=== PATIENT | female | born 1960 | race Caucasian/White ===

== ENCOUNTER 2023-07-19 21:06 | Emergency (ER) | payer OTHER ==
[~2023-07-19] VITALS: Ht 157.5 cm; Wt 70.9 kg
[2023-07-19 21:33] VITALS: BP 180/74; O2SAT 95
[2023-07-19] MEDS ORDERED: CEFUROXIME AXETIL 250 MG TABLET PO STA (21:33)
[2023-07-19 21:55] LABS: SARS-CoV-2, RNA, NAAT NEGATIVE SARS CoV-2 (NEGATIVE)
[2023-07-19 21:59] LABS: INFLUENZA TYPE A Negative For Type A (NEGATIVE); INFLUENZA TYPE B Negative For Type B (NEGATIVE)
[2023-07-19] MEDS ORDERED: PREDNISONE 20 MG TABLET PO ONE (22:00)
[2023-07-19] MEDS ORDERED: IPRATROPIUM/ALBUTEROL SULFATE 3 ML SOLUTION IH ONE (22:00)
[2023-07-19] MEDS ORDERED: PRED20TA3 PO (22:23)
[2023-07-19] MEDS ORDERED: ALBU90AE2 IH (22:23)
[2023-07-19] MEDS ORDERED: CEFU500T67 PO (22:23)
[2023-07-19 22:52] LABS: BASOPHILS # (AUTO) 0.05 K/uL (0.00-0.20); BASOPHILS % (AUTO) 0.6 % (0.0-5.0); EOSINOPHILS # (AUTO) 0.36 K/uL (0.00-0.70); EOSINOPHILS % (AUTO) 4.2 % (0.0-8.0); HEMATOCRIT 50.1 % (36-48); IMMATURE GRANULOCYTE ABSOLUTE 0.02 K/uL (0-1); LYMPHOCYTES # (AUTO) 3.7 K/uL (1.0-4.8); LYMPHOCYTES % (AUTO) 42.2 % (21.0-51.0); MEAN CORPUSCULAR HEMOGLOBIN 31.2 pg (27.0-33.0); MEAN CORPUSCULAR HGB CONC 32.7 g/dL (32.0-36.0); MEAN CORPUSCULAR VOLUME 95.4 fL (79-99); MONOCYTES # (AUTO) 0.7 K/uL (0.1-1.0); MONOCYTES % (AUTO) 8.6 % (3.0-13.0); NEUTROPHILS # (AUTO) 3.8 K/uL (1.8-7.7); NEUTROPHILS % (AUTO) 44.2 % (40.0-77.0); PLATELET COUNT (AUTO) 307 K/uL (130-400); RED BLOOD CELL COUNT(AUTO) 5.25 MIL/uL (4.00-5.50); RED CELL DISTRIBUTION WIDTH 13.9 % (11.0-15.5); WHITE BLOOD COUNT (AUTO) 8.6 K/uL (4.8-10.8)
[2023-07-19 23:03] LABS: CREATININE 1.4 mg/dL (0.5-1.5); POTASSIUM 4.6 mmol/L (3.5-5.1)
[2023-07-19 23:10] LABS: ALBUMIN 3.1 g/dL (3.5-5.0); BILIRUBIN,TOTAL 0.2 mg/dL (0.2-1.0); TOTAL PROTEIN, SERUM 7.9 g/dL (6.0-8.3)
[2023-07-19 23:26] VITALS: PULSE 96; RESP 20
[2023-07-20 00:04] LABS: B-TYPE NATRIURETIC PEPTIDE 93 pg/mL (0-100)
== END 2023-07-19 23:56 | disposition home or self-care (01) ==
LOC: EDH 21:06
DX: J20.9 Acute bronchitis, unspecified (principal); J45.909 Unspecified asthma, uncomplicated; I10 Essential (primary) hypertension; Z20.822 Contact with and (suspected) exposure to COVID-19; Z90.49 Acquired absence of other specified parts of digestive tract; Z88.8 Allergy status to other drugs, medicaments and biological substances
CPT/HCPCS: 99284; 71045; 87635; 82550; 84484; 80053; 83880; 85025; 87804 ×2; 36415; 94640; C9803

== ENCOUNTER 2025-04-29 12:29 | Emergency (ER) | payer SELFPAY ==
[~2025-04-29] VITALS: Ht 157.5 cm; Wt 72.6 kg
[~2025-04-29 12:29] MED LIST: ALBU90AE3 IH; CEFU500T67 PO; PRED20TA3 PO
[2025-04-29 13:01] LABS: IMMATURE GRANULOCYTE ABSOLUTE 0.03 K/uL (0-1); NUCLEATED RED BLOOD CELLS 0.0 % (0.0-0.19); PLATELET COUNT (AUTO) 363 K/uL (130-400); RED BLOOD CELL COUNT(AUTO) 4.74 MIL/uL (4.00-5.50); RED CELL DISTRIBUTION WIDTH 14.6 % (11.0-15.5); WHITE BLOOD COUNT (AUTO) 8.9 K/uL (4.8-10.8)
[2025-04-29 13:10] LABS: CREATININE 1.2 mg/dL (0.5-1.0); GLOMERULAR FILTR. RATE CALC 51.0 mL/min (>90); GLUCOSE,RANDOM 130.0 mg/dL (70-105); SODIUM SERUM 137.0 mmol/L (136-145); UREA NITROGEN, BLOOD 11.0 mg/dL (7-18)
[2025-04-29 13:11] LABS: INR 0.96 (0.85-1.15)
--- NOTE | 2025-04-29 13:11 | ERN ---
General Chief Complaint: Chest Pain Stated Complaint: CP Time Seen by MD: 12:32 Source: patient History of Present Illness Initial Comments PATIENT IS A 64-YEAR-OLD FEMALE COMING IN COMPLAINING OF CHEST PRESSURE CHEST DISCOMFORT. PER PATIENT SHE HAS HAD THIS SYMPTOMS FOR A COUPLE OF WEEKS ON AND OFF. SHE STATED THAT TODAY IT IS 6045 IN THE MORNING SHE WAS HAVING THIS DISCOMFORT BUT A MOMENT OF EVALUATION IN TRIAGE HER SYMPTOMS HAVE SUBSIDED. PATIENT DOES STATE THAT SHE SMOKES HALF A PACK OF CIGARETTES FOR 20 YEARS. Allergies: Coded Allergies: shellfish derived (Unverified Allergy, Unknown, 07/19/23) Home Meds Active Scripts Albuterol Sulfate (Proair Digihaler) 90 Mcg Aer.pw.bas, 2 PUFF IH QID, #1 UNIT Prov:GABY NOGUERA MD 07/19/23 Prednisone (Prednisone) 20 Mg Tablet, 1 TAB PO AD for 6 Days, #14 TAB 0 Refills TAKE 3 TAB BY MOUTH daily X3 DAYS, THEN TAKE 2 TAB BY MOUTH daily X2 DAYS, THEN TAKE 1 TAB BY MOUTH ONCE A DAY X1 DAY. Prov:GABY NOGUERA MD 07/19/23 Cefuroxime Axetil (Cefuroxime) 500 Mg Tablet, 500 MG PO BID, #20 TAB Prov:GABY NOGUERA MD 07/19/23 Past Medical History Past Medical History: Cancer, Hypertension Past Surgical History: Cholecystectomy Surgical History Other: RT NEPHRECTOMY ROS Dictation CONSTITUTIONAL: NO CHILLS, NO FEVER, NO WEAKNESS, NO DIAPHORESIS, NO MALAISE. HEAD/FACE: NO SIGNS OF TRAUMA. EENT: NO EYE PAIN, NO BLURRED VISION, NO TEARING, NO DOUBLE VISION, NO EAR PAIN, NO EAR DISCHARGE, NO NOSE PAIN, NO NASAL CONGESTION, NO THROAT PAIN, NO THROAT SWELLING, NO MOUTH PAIN. RESPIRATORY: NO COUGH, NO ORTHOPNEA, NO SOB, NO STRIDOR, NO WHEEZING. CARDIOVASCULAR: NO CHEST PAIN, NO EDEMA, NO PALPITATIONS, NO SYNCOPE. GASTROINTESTINAL/ABDOMINAL: NO ABDOMINAL PAIN, NO CONSTIPATION, NO DIARRHEA, NO NAUSEA, NO VOMITING. GENITOURINARY: NO ABNORMAL DISCHARGE, NO DYSURIA, NO FREQUENT URINATION, NO HEMATURIA. NO COMPLAINTS OF PAIN IN THE GENITALS. MUSCULOSKELETAL: NO BACK PAIN, NO GOUT, NO JOINT PAIN, NO JOINT SWELLING, NO MUSCLE PAIN, NO MUSCLE STIFFNESS, NO NECK PAIN. INTEGUMENTARY: NO CHANGE IN COLOR, NO CHANGE IN HAIR/NAILS, NO DRYNESS, NO LESION, NO LUMPS, NO RASH. NEUROLOGICAL/PSYCH: NO ANXIETY, NOT DEPRESSED, NO EMOTIONAL PROBLEM, NO HEADAC HE, NO NUMBNESS, NO PRE-EXISTING DEFICIT, NO HISTORY OF SEIZURES, NO TREMORS, NO WEAKNESS. HEMATOLOGIC/LYMPHATIC: NOT ANEMIC, NO HISTORY OF BLOOD CLOTS, NO APPARENT BLEEDING, NO BRUISING, GLANDS NOT SWOLLEN. ALL SYSTEMS NEGATIVE, EXCEPT NOTED. Physical Exam Physical Exam Dictation VITAL SIGNS: REVIEWED. GENERAL APPEARANCE: ALERT, ORIENTED X3, NO ACUTE DISTRESS, OBESE. HEAD AND FACE: NON-TRAUMATIC. EYES: PERRL, PINK CONJUNCTIVAS, EYELID NO TRAUMA, ANTERIOR CHAMBER CLEAR. EARS: PINNAS INTACT AND NO SIGNS OF TRAUMA OR ERYTHEMA. EAR CANALS CLEAR AND NO DISCHARGE. TMS NO ERYTHEMA. NOSE: NO DISCHARGE, NO BLEEDING. OROPHARYNX: MOUTH NORMAL, TEETH NO CARIES, TONGUE PINK. PHARYNX CLEAR, NO ERYTHEMA. TONSILS NO EXUDATES, NO ABSCESSES NOTED. MUCOUS MEMBRANE MOIST. NECK: SUPPLE, NON-TENDER, NO THYROMEGALY, NO MASSES, NO JVD, NO BRUITS. BREAST: DEFERRED. CHEST: NO TENDERNESS, NO CREPITUS, NO PARADOXICAL MOVEMENT, NO RETRACTIONS. LUNGS: CLEAR, WELL-VENTILATED, SYMMETRIC, NO RALES, NO WHEEZING, NO RHONCHI, NO STRIDOR, GOOD BREATH SOUNDS BILATERALLY. HEART: REGULAR RATE, REGULAR RHYTHM, NO MURMUR, NO GALLOPS. VASCULAR: NO PERIPHERAL EDEMA. ABDOMEN: SOFT, POSITIVE BOWEL SOUNDS, NONDISTENDED, NO GUARDING, NONTENDER, NO REBOUND, NO MASSES NO HEPATOMEGALY, NO SPLENOMEGALY, NO MILES'S SIGN, NO HERNIAS. RECTAL: DEFERRED. GENITAL: DEFERRED. NEUROLOGICAL: NORMAL SPEECH, GROSS MOTOR FUNCTION INTACT, GROSS SENSORY FUNCTION INTACT. MUSCULOSKELETAL: NECK NONTENDER, FULL RANGE OF MOTION, BACK NONTENDER, FULL RANGE OF MOTION. EXTREMITIES: NONTENDER, FULL RANGE OF MOTION. SKIN: COLOR PINK, DRY, NO TURGOR, NO RASH, NO LACERATIONS, NO ABRASIONS, NO CONTUSIONS. LYMPHATICS: DEFERRED. Results Laboratory and Microbiology Lab and Micro Result Laboratory Tests Test 04/29/25 12:56 White Blood Count 8.9 K/uL (4.8-10.8) Red Blood Count 4.74 MIL/uL (4.00-5.50) Hemoglobin 15.0 g/dL (12.0-16.0) Hematocrit 44.2 % (36-48) Mean Corpuscular Volume 93.2 fL (79-99) Mean Corpuscular Hemoglobin 31.6 pg (27.0-33.0) Mean Corpuscular Hemoglobin Concent 33.9 g/dL (32.0-36.0) Red Cell Distribution Width 14.6 % (11.0-15.5) Platelet Count 363 K/uL (130-400) Mean Platelet Volume 9.2 fL (7.5-10.5) Immature Granulocyte % (Auto) 0.3 % (0-1) Neutrophils (%) (Auto) 56.3 % (40.0-77.0) Lymphocytes (%) (Auto) 28.9 % (21.0-51.0) Monocytes (%) (Auto) 9.0 % (3.0-13.0) Eosinophils (%) (Auto) 4.7 % (0.0-8.0) Basophils (%) (Auto) 0.8 % (0.0-5.0) Neutrophils # (Auto) 5.0 K/uL (1.8-7.7) Lymphocytes # (Auto) 2.6 K/uL (1.0-4.8) Monocytes # (Auto) 0.8 K/uL (0.1-1.0) Eosinophils # (Auto) 0.42 K/uL (0.00-0.70) Basophils # (Auto) 0.07 K/uL (0.00-0.20) Absolute Immature Granulocyte (auto 0.03 K/uL (0-1) Nucleated Red Blood Cells 0.0 % (0.0-0.19) Prothrombin Time 10.2 SEC (9.6-11.6) Prothromb Time International Ratio 0.96 (0.85-1.15) Activated Partial Thromboplast Time 31.2 SEC (26.3-35.5) Sodium Level 137 mmol/L (136-145) Potassium Level 4.0 mmol/L (3.5-5.1) Chloride Level 104 mmol/L (101-111) Carbon Dioxide Level 29 mmol/L (21-32) Blood Urea Nitrogen 11 mg/dL (7-18) Creatinine 1.2 mg/dL (0.5-1.0) H Glomerular Filtration Rate Calc 51 mL/min (>90) Random Glucose 130 mg/dL (70-105) H Total Calcium 8.9 mg/dL (8.5-10.1) Magnesium Level 1.90 mg/dL (1.80-2.40) Troponin I High Sensitivity 20 ng/L (4-50) B-Type Natriuretic Peptide 156 pg/mL (0-100) H Labs Reviewed?: Yes EKG/XRAY/US/CT/MRI EKG Comment 04/29/2025 TIME 12:22 P.M. VENTRICULAR RATE 80 SINUS RHYTHM LEFT BUNDLE BRANCH BLOCK NO ST WAVE ELEVATION OR DEPRESSION X-RAY Comment [place] [id number] [id number] IMAGING REPORT Signed PATIENT: MINA BRADSHAW MR#: [id number] : 1960 SEX: F AGE: 64 LOCATION: [facility] ORDER 1234 STATUS: REG ER REPORT#: [id number] SERVICE 1232 REASON: CP ORDERING PHYSICIAN: AME COOPER MD PROCEDURE: CXR1VW - CHEST 1VW EXAM: CR Chest, 1 View. CLINICAL HISTORY: CP COMPARISON: None provided. FINDINGS: LUNGS: The lungs show no infiltrate or other acute finding. PLEURAL SPACES: No evidence of pleural effusion or pneumothorax. MEDIASTINUM: Cardiac size and mediastinal contours within normal limits. BONES: No acute osseous abnormality. IMPRESSION: No acute cardiopulmonary pathology is evident. /[place] DICTATED BY: HO DOWNS Jr., MD DATE: 04/29/251431 ELECTRONICALLY SIGNED BY: HO DOWNS Jr., MD DATE: 04/29/251431 [facility] MDM: DIFFERENTIAL DIAGNOSIS: LEFT BUNDLE-BRANCH BLOCK, CHEST PAIN, HISTORY OF TOBACCO ABUSE, RATIONALE: TESTS CONSIDERED AND ORDERED SECONDARY TO SHARED DECISION MAKING INCLUDE: LABS, ECG AND RADIOLOGY PREVIOUS OUTSIDE RECORDS REVIEWED: OLD ER VISITS. RISK OF COMPLICATION AND/OR MORBIDITY OR MORTALITY OF PATIENT MANAGEMENT: NONE MEDICATIONS-PER MEDICATION RECONCILIATION NEED FOR HOSPITALIZATION: PATIENT DOES MEET CRITERIA FOR HOSPITALIZATION. NEED FOR EMERGENCY MAJOR/MINOR SURGERY: NO THERE ARE NO SOCIAL CONCERNS WITH THIS PATIENT. PRESCRIPTION DRUG MANAGEMENT PRESCRIPTIONS WILL INCLUDE SYMPTOMATIC CARE PATIENT'S PRIOR EXTERNAL MEDICAL RECORDS FROM OTHER ER VISITS WERE REVIEWED BY ME INDICATED. PRIOR TESTING AND RESULTS FROM PREVIOUS VISITS WERE REVIEWED. PRIOR TESTS WERE TAKEN INTO ACCOUNT WITH MEDICAL DECISION MAKING AND RESOURCE UTILIZATION, INDEPENDENT HISTORIAN/HISTORIANS WERE USED TO OBTAIN COMPLETE MEDICAL HISTORY. I INDEPENDENTLY INTERPRETED THE TEST THAT WERE PERFORMED, RESULTS WERE REVIEWED BY ME AND CONSIDERED FINDINGS ON RADIOLOGY IF ORDERED. MEDICAL MANAGEMENT AND EXAMINATION INTERPRETATION DISCUSSIONS WERE HAD BY ME WITH OTHER QUALIFIED HEALTHCARE PROFESSIONALS INDICATED FOR THE PATIENT'S CARE. PATIENT PRESENTS WITH CHEST PAIN ON AND OFF FOR SEVERAL WEEKS. CONCERNING FINDINGS AND EKG, A NEW LEFT BUNDLE BRANCH BLOCK WITH CHEST PAIN I DID ADVISE HER CARDIAC EVALUATION WITH THE NECESSARY AND KEEP HER WAS NOTIFIED BY NURSING STAFF THE PATIENT DID NOT WANT TO STAY LEFT AGAINST MEDICAL ADVICE. ED Course Orders Procedure Category Date Status Time Cbc With Differential LAB 04/29/25 Complete 12:32 Prothrombin Time With LAB 04/29/25 Complete INR 12:32 Chest 1vw RAD 04/29/25 Resulted 12:32 12 Lead Ekg Tracing- EKG 04/29/25 Complete Technical 12:32 Magnesium LAB 04/29/25 Complete 12:32 Troponin I High LAB 04/29/25 Complete Sensitivity 12:32 Partial LAB 04/29/25 Complete Thromboplastin Time 12:32 Basic Metabolic Panel LAB 04/29/25 Complete 12:32 B-Type Natriuretic LAB 04/29/25 Complete Peptide 12:32 Vital Signs Date Time Temp Pulse Resp B/P (MAP) Pulse Ox O2 Delivery O2 Flow Rate FiO2 04/29/25 13:21 98.6 73 20 165/73 96 Room Air* 0 04/29/25 12:58 75 20 166/60 96 Room Air* 0 04/29/25 12:32 97.3 76 18 194/77 98 Room Air 0 DX & DISP Disposition: AMA Departure Impression: Primary Impression: New onset left bundle branch block (LBBB) Additional Impression: Chest pain Condition: Against Medical Advice Additional Instructions: PATIENT LEFT AGAINST MEDICAL ADVICE. Referrals: SELF,REFERRAL (PCP) AME COOPER MD Apr 29, 2025 13:11
--- NOTE | 2025-04-29 13:18 | EKG ---
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
[2025-04-29 13:21] VITALS: BP 165/73; PULSE 73; RESP 20; TEMP 98.6; O2SAT 96
--- NOTE | 2025-04-29 13:32 | HMCIMG ---
EXAM: CR Chest, 1 View. CLINICAL HISTORY: CP COMPARISON: None provided. FINDINGS: LUNGS: The lungs show no infiltrate or other acute finding. PLEURAL SPACES: No evidence of pleural effusion or pneumothorax. MEDIASTINUM: Cardiac size and mediastinal contours within normal limits. BONES: No acute osseous abnormality. IMPRESSION: No acute cardiopulmonary pathology is evident. /[place]
--- NOTE | 2025-04-29 13:42 | NUR ---
DR. COOPER SPOKE WITH PATIENT ABOUT BEING ADMITTED TO THE HOSPITAL FOR FURTHER CARDIAC WORKUP, PATIENT VOICED THAT SHE IS NOT READY FOR ADMISSION AND NEEDS TO RETURN HOME TO SITUATE HER HOME AND ANIMALS. INFORMED PATIENT THAT IF SHE LEAVES IT IS CONSIDERED LEAVING AGAINST MEDICAL ADVICE AND THE RISKS INVOLVED ARE WORSENING OF SYMPTOMS OR . PATIENT VERBALIZED UNDERSTANDING AND INSTRUCTED TO RETURN TO THE ED IF SYMPTOMS WORSEN. PATIENT SIGNED AMA FORM AND AMBULATED TO THE DISCHARGE DOOR TO THE WAITING ROOM. ED MD AWARE AND SIGNED AMA FORM./[place]
== END 2025-04-29 13:53 | disposition left against medical advice (07) ==
LOC: EDH 12:29
DX: I44.7 Left bundle-branch block, unspecified (principal); I10 Essential (primary) hypertension; Z87.891 Personal history of nicotine dependence; Z90.49 Acquired absence of other specified parts of digestive tract; Z90.5 Acquired absence of kidney
CPT/HCPCS: 36415; 71045; 80048; 83735; 83880; 84484; 85025; 85610; 85730; 93005; 99285

== ENCOUNTER 2025-04-29 15:55 | Emergency (ER) | payer SELFPAY ==
[~2025-04-29] VITALS: Ht 157.5 cm; Wt 72.6 kg
[2025-04-29 15:57] VITALS: TEMP 97.2
--- NOTE | 2025-04-29 16:20 | NUR ---
PT IS CONFRONTATIONAL, UNWILLING TO FULLY COOPERATE. WHEN ASKED BOUT PTS MEDICAL HISTORY AND REASON FOR HOSPITAL VISIT PT STATED "I DONT SEE HOW THAT MATTERS, I WAS HERE EARLIER. I DON'T GIVE PEOPLE MY MEDICAL HISTORY BEACSUE IT DOES PERTAIN TO WHY IM HERE". PT WAS ADVISED THAT WILLFULY WITHOLDING HER HISTORY IS ONLY A DISSERVICE TO HERSELF SHE IS RECEIVING INCOMPLETE MEDICAL CARE. PT DOES NOT SEEM RECEPTIVE TO EDUCATION AT THIS TIME.
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
--- NOTE | 2025-04-29 16:25 | NUR ---
PT WAS ADVISED THAT TROPONIN WOULD BE REPEATED AT THIS TIME TO DEFINE A TREND. PT WAS ADVISED THAT TROPONIN WOULD LIKE BE REPEATED A FEW TIMES DURING ADMISSION TO ASCERTAIN CARDIAC HEALTH. PT WAS VERY RESISTANT TO LAB COLLECTION. AFTER MULTIPLE TIMES OF RE-ITERATING NEED FOR BLOOD WORK, PT CONSENTED TO LAB DRAW. PT THEN STATED THAT EVERYONE HURTS HER GETTING LAB WORK. ON COLLECTION PT WAS MOVING TO WITHDRAW FROM IV AND KEEP MMOVING HER ARM. WHEN ASKED TO HOLD STILL PT REPLIED "NO I WONT". LAB WAS SUCCESSFULLY OBTIANED, REGARDLESS OF MOTION.
[2025-04-29 16:30] VITALS: BP 186/71; PULSE 75; RESP 18; O2SAT 96
--- NOTE | 2025-04-29 17:05 | NUR ---
PT IS WALKING UP AND DOWN THE HALLS, STATES SHE WANTS TO WAIT OUTSIDE. PT WAS ADVISED THAT MUST STAY IN THE ED. PT WAS ADVISED THAT SHE CANNOT LEAVE THE ED WITH IV BUT IS MORE THAN WELCOME TO SIT IN A CHAIR IN THE HALLWAY, PT REPORTS THAT SHE CANNOT BE INSIDE THE ROOM ANYMORE BECAUSE IT MAKES HER ANXIOUS. PT REMIANED STANDING IN THE HALLWAY. PT THEN ASKED HOW LONG IT WOULD TAKE TO GET A ROOM UPSTAIRS . PT WAS ADVISED SHE STILL DOES NOT HAVE ADMISSION ORDERS AND IT MIGHT TAKE A WHILE TO GET HER UPSTAIRS.
--- NOTE | 2025-04-29 17:15 | NUR ---
PT STATES SHE WANTS THE IV REMOVED, STATES SHE IS LEAVING. WHEN ADVISED SHE NEEDED TO SIGN OUT AMA, PT STATES "THAT'S FINE". PTS IV WAS REMOVED AND SITE WAS BANDAGED WITH COBAIN. PT GIVEN AMA FORM TO SIGN. PROVIDER MIRTA NEGRETE NP WAS INFOMRED. PROVIDER SPOKE TO PT, PT CONTINUES TO REPORT THAT SHE IS LEAVING. PT LEFT THE ED DEPARTMENT ON HER OWN VOLITION.
--- NOTE | 2025-04-30 06:28 | EKG ---
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
== END 2025-04-29 17:20 | disposition home or self-care (01) ==
LOC: EDH 15:55
DX: I44.7 Left bundle-branch block, unspecified (principal); R07.89 Other chest pain; N18.30 Chronic kidney disease, stage 3 unspecified; F17.200 Nicotine dependence, unspecified, uncomplicated; Z90.49 Acquired absence of other specified parts of digestive tract; Z90.5 Acquired absence of kidney
CPT/HCPCS: 84484; 93005; 99284

== ENCOUNTER 2025-06-18 23:01 | Emergency (ER) | payer SELFPAY ==
[~2025-06-18] VITALS: Ht 157.5 cm; Wt 72.6 kg
--- NOTE | 2025-06-18 23:22 | ERN ---
ED Note History of Present Illness Stated Complaint: LEG PAIN Chief Complaint: Lower Extremity Pain/Injury Time Seen by MD: 23:14 Dictation: PATIENT IS A 64-YEAR-OLD FEMALE COMING IN TODAY WITH COMPLAINTS OF RIGHT CALF AND THIGH PAIN SWELLING SHE HAS HAD FOR TWO MONTHS. SHE SAID SHE STARTED OUT WITH A WALK TWO MONTHS AGO WHERE SHE FELT THE PAIN IN HER CALF AND HAS BEEN GRADUALLY GETTING WORSE. SHE DENIES FEVER CHILLS NAUSEA VOMITING. DISTAL NEUROVASCULAR CMS INTACT. SHE STATES SHE WENT TO A LOCAL URGENT CARE TODAY AND THEY PERFORMED X-RAYS AND PRESCRIBED TYLENOL WITH CODEINE BUT IT WAS TOO LATE TO PICK IT UP. SHE STATES HE SHE IS HERE BECAUSE OF THE PAIN IN HIS CONCERNED BECAUSE SHE ONLY HAS ONE KIDNEY THAT SHE LOST TO RE[facility] CELL [facility]CIN[facility] MORE THAN 20 YEARS AGO. Allergies: Coded Allergies: shellfish derived (Unverified Allergy, Unknown, 07/19/23) Home Meds Active Scripts Albuterol Sulfate (Proair Digihaler) 90 Mcg Aer.pw.bas, 2 PUFF IH QID, #1 UNIT Prov:GABY NOGUERA MD 07/19/23 Prednisone (Prednisone) 20 Mg Tablet, 1 TAB PO AD for 6 Days, #14 TAB 0 Refills TAKE 3 TAB BY MOUTH daily X3 DAYS, THEN TAKE 2 TAB BY MOUTH daily X2 DAYS, THEN TAKE 1 TAB BY MOUTH ONCE A DAY X1 DAY. Prov:GABY NOGUERA MD 07/19/23 Cefuroxime Axetil (Cefuroxime) 500 Mg Tablet, 500 MG PO BID, #20 TAB Prov:GABY NOGUERA MD 07/19/23 Past Medical History Past Medical History: Cancer, Hypertension, Other Additional Past Medical Hx: NON COMPLIANT Surgical History: Appendectomy, Cholecystectomy Surgical History Other: RT NEPHRECTOMY Social History: Smokers History: Not Applicable RN Note Reviewed/Agreed w/PFSH: Yes Review of System Dictation CONSTITUTIONAL: NEGATIVE EXCEPT FOR HPI HEAD/FACE: NEGATIVE EXCEPT FOR HPI EENT: NEGATIVE EXCEPT FOR HPI RESPIRATORY: NEGATIVE EXCEPT FOR HPI GASTROINTESTINAL/ABDOMINAL: NEGATIVE EXCEPT FOR HPI GENITOURINARY: NEGATIVE EXCEPT FOR HPI MUSCULOSKELETAL: NEGATIVE EXCEPT FOR HPI RIGHT LEG THIGH CALF PAIN SWELLING INTEGUMENTARY: NEGATIVE EXCEPT FOR HPI NEUROLOGICAL/PSYCH: NEGATIVE EXCEPT FOR HPI HEMATOLOGIC/LYMPHATIC: NEGATIVE EXCEPT FOR HPI ALL SYSTEMS NEGATIVE, EXCEPT NOTED ABOVE. 13 POINT REVIEW OF SYSTEMS ASSESSED AND ALL NEGATIVE EXCEPT FOR ABOVE. Initial Vital Sign VS Vital Signs Date Time Temp Pulse Resp B/P (MAP) Pulse Ox O2 Delivery O2 Flow Rate FiO2 06/18/25 23:12 97.9 88 20 198/90 99 Room Air Physical Exam Dictation VITAL SIGNS REVIEWED GENERAL APPEARANCE: ALERT, ORIENTED X 3, N MILD ACUTE DISTRESS, WELL DEVELOPED, NOURISHED. HEAD AND FACE: NON-TRAUMATIC. EYES: PERRL, PINK CONJUNCTIVAS, EYELID NO TRAUMA, ANTERIOR CHAMBER WITH ARCUS SENILIS. EARS: PINNAS INTACT AND NO SIGNS OF TRAUMA OR ERYTHEMA EAR CANALS CLEAR AND NO DISCHARGE TM NO ERYTHEMA NOSE: NO DISCHARGE, NO BLEEDING. OROPHARYNX: MOUTH NORMAL, TONGUE PINK, PHARYNX CLEAR,NO ERYTHEMA, TONSILS NO EXUDATES, NO ABSCESSES NOTED, MUCOUS MEMBRANE MOIST NECK: SUPPLE, NON-TENDER, NO THYROMEGALY, NO MASSES, NO JVD, NO BRUITS BREAST:DEFERRED CHEST:NO TENDERNESS, NO CREPITUS, NO PARADOXICAL MOVEMENT, NO RETRACTIONS LUNGS:CLEAR, WELL-VENTILATED, SYMMETRIC, NO RALES, NO WHEEZING, NO RHONCHI, NO STRIDOR, GOOD BREATH SOUNDS BILATERALLY HEART: REGULAR RATE, REGULAR RHYTHM, NO MURMUR, NO GALLOPS VASCULAR: NO PERIPHERAL EDEMA, ABDOMEN: SOFT, POSITIVE BOWEL SOUNDS, NONDISTENDED, NO GUARDING, NONTENDER, NO REBOUND, NO MASSES NO HEPATOMEGALY, NO SPLENOMEGALY, NO MILES'S SIGN, NO HERNIAS. RECTAL: DEFERRED GENITAL: DEFERRED NEUROLOGICAL: NORMAL SPEECH, MOTOR FUNCTION INTACT, SENSORY FUNCTION INTACT MUSCULOSKELETAL: NECK NONTENDER, FULL RANGE OF MOTION, BACK NONTENDER, FULL RANGE OF MOTION, EXTREMITIES: MILD RIGHT CALF AND THIGH TENDERNESS. ERYTHEMA. DISTAL NEUROVASCULAR CMS INTACT. SKIN: COLOR PINK, DRY, NO TURGOR, NO RASH, NO LACERATIONS, NO ABRASIONS, NO CONTUSIONS. LYMPHATIC: DEFERRED Results (Laboratory/Radiology) Laboratory/Radiology Doppler study right leg demonstrates nonocclusive thrombus in the calf. Labs Reviewed?: Yes ED Course ED Course Orders Procedure Category Date Status Time Us Venous Doppler US 06/18/25 Taken Unilateral 23:19 Vital Signs Date Time Temp Pulse Resp B/P (MAP) Pulse Ox O2 Delivery O2 Flow Rate FiO2 06/18/25 23:12 97.9 88 20 198/90 99 Room Air 0045/patient has a nonocclusive for isolated climbed thrombus in the right calf. Discharged home to take aspirin daily 81 mg List of doctors to follow up Medical Decision Making MDM Medical decision-making based on HPI and ultrasound to rule out DVT. Patient has a an isolated thrombus in the right reno right calf Given 81 mg aspirin and told follow up with one of the doctors on the list provided her. DX & DISP Disposition: Discharge Departure Impression: Primary Impression: Deep vein thrombosis of right lower extremity Condition: Stable Scripts Aspirin (ASPIRIN 81 MG ECTAB) 81 Mg Ectab 81 MG PO DAILY, #30 TAB.EC Prov: MIRTA NEGRETE 06/19/25 Additional Instructions: Follow-up with primary care provider in 1 to 2 days. Take medications as directed here in the emergency room. Okay to continue home medications unless otherwise discussed during your visit in the emergency room today. Return to [facility] emergency room if symptoms worsen or if there is no improvement. Call 911 if you need immediate assistance. Take Tylenol or Motrin [id number] as needed and if no contraindications are present. Increase oral hydration. A wound culture or urine culture was ordered here in the emergency room department please follow-up with primary care provider and advise them to get repeat ports from our facility. If you had any Popeye wrap/splints that were applied here, please do not remove them until you see your primary care or specialty. Take enteric-coated 81 mg aspirin daily. Follow up with one of the doctors on the list provided you in the next 1-2 days for management. Referrals: SELF,REFERRAL (PCP) Time of Disposition: 00:48 I have reviewed the case, and I agree with, Diagnosis and Plan MIRTA NEGRETE Jun 18, 2025 23:21
--- NOTE | 2025-06-19 00:25 | NUR ---
PT NOT IN LOBBY
--- NOTE | 2025-06-19 00:38 | NUR ---
PT NOT LOCATED IN LOBBY
--- NOTE | 2025-06-19 00:48 | NUR ---
PT CALLED, NO ANSWER
[2025-06-19] MEDS ORDERED: AEC81 PO (00:49)
--- NOTE | 2025-06-19 01:04 | NUR ---
PT RETURNED FROM " SMOKING"
[2025-06-19] MEDS: ASPIRIN 81 MG EC TAB PO ONE (01:10)
[2025-06-19 01:33] VITALS: BP 184/91; PULSE 65; RESP 16; TEMP 97.5; O2SAT 96
--- NOTE | 2025-06-19 01:45 | HMCIMG ---
EXAM: US for Deep Venous Thrombosis, right Lower Extremity. CLINICAL HISTORY: Right calf and thigh pain with swelling. Rule out DVT. TECHNIQUE: Real-time ultrasound scan of the veins of the right lower extremity with color Doppler flow, spectral waveform analysis, and compression. COMPARISON: None provided. FINDINGS: DEEP VEINS: The common femoral, superficial femoral, and popliteal veins are echolucent and compressible. There is normal color Doppler flow throughout. The PTB appears unremarkable. A thrombosed calf vein is identified. SOFT TISSUES: No popliteal fossa cyst or other abnormalities. IMPRESSION: A thrombosed calf vein is identified. /[place]
== END 2025-06-19 01:33 | disposition home or self-care (01) ==
LOC: EDH 23:01
DX: I82.401 Acute embolism and thrombosis of unspecified deep veins of right lower extremity (principal); I10 Essential (primary) hypertension; F17.200 Nicotine dependence, unspecified, uncomplicated; Z90.49 Acquired absence of other specified parts of digestive tract; Z90.89 Acquired absence of other organs; Z91.013 Allergy to seafood; Z79.82 Long term (current) use of aspirin; Z79.899 Other long term (current) drug therapy
CPT/HCPCS: 93971; 99284

== ENCOUNTER 2025-06-23 14:49 | Emergency (ER) | payer SELFPAY ==
[~2025-06-23] VITALS: Ht 157.5 cm; Wt 72.6 kg
[2025-06-23 14:51] VITALS: BP 159/61; PULSE 70; RESP 18; TEMP 98.5
--- NOTE | 2025-06-23 16:06 | EKG ---
[facility] Test Date: 2025-06-23 Test Time: 16:01:08 Pat Name: MINA BRADSHAW Department: ED Room: Gender: F Supply Technician: [id number] : [id number] Requested By: HARSHA HINES Order Number: [id number] Reading MD: Jaden Walker Measurements Intervals [place] Rate: 75 P: 54 CO: 173 QRS: -30 QRSD: 164 T: 119 QT: 437 QTc: 490 Interpretive Statements Sinus rhythm Probable left atrial enlargement Left bundle branch block ST elevation secondary to IVCD Compared to ECG 04/29/2025 16:25:01 No significant changes Electronically Signed On 06-24-2025 16:34:09 CDT by Jaden Walker Please click the below link to view image of tracing.
[2025-06-23 16:22] LABS: IMMATURE GRANULOCYTE ABSOLUTE 0.04 K/uL (0-1); NUCLEATED RED BLOOD CELLS 0.0 % (0.0-0.19); PLATELET COUNT (AUTO) 382 K/uL (130-400); RED BLOOD CELL COUNT(AUTO) 4.94 MIL/uL (4.00-5.50); RED CELL DISTRIBUTION WIDTH 14.0 % (11.0-15.5); WHITE BLOOD COUNT (AUTO) 11.1 K/uL (4.8-10.8)
[2025-06-23 16:37] LABS: CREATININE 1.2 mg/dL (0.5-1.0); GLOMERULAR FILTR. RATE CALC 51 mL/min (>90); GLUCOSE,RANDOM 104 mg/dL (70-105); SODIUM SERUM 140 mmol/L (136-145); UREA NITROGEN, BLOOD 12 mg/dL (7-18)
--- NOTE | 2025-06-23 16:44 | ERN ---
ED Note History of Present Illness Stated Complaint: LEG PAIN, NAUSEA Chief Complaint: Multiple Complaints Time Seen by MD: 15:18 Dictation: 64-year-old female history of hypertension and dyslipidemia recently diagnosed with small DVT to the right calf presenting again with nausea generalized weakness and again having some pain to the right calf area was placed on a baby aspirin upon last visit. Patient denies any chest pain or shortness of breath. Allergies: Coded Allergies: shellfish derived (Unverified Allergy, Unknown, 07/19/23) Home Meds Active Scripts Aspirin (ASPIRIN 81 MG ECTAB) 81 Mg Ectab, 81 MG PO DAILY, #30 TAB.EC Prov:MIRTA NEGRETE FRAMING MACHINE TENDER 06/19/25 Albuterol Sulfate (Proair Digihaler) 90 Mcg Aer.pw.bas, 2 PUFF IH QID, #1 UNIT Prov:GABY NOGUERA MD 07/19/23 Prednisone (Prednisone) 20 Mg Tablet, 1 TAB PO AD for 6 Days, #14 TAB 0 Refills TAKE 3 TAB BY MOUTH daily X3 DAYS, THEN TAKE 2 TAB BY MOUTH daily X2 DAYS, THEN TAKE 1 TAB BY MOUTH ONCE A DAY X1 DAY. Prov:GABY NOGUERA MD 07/19/23 Cefuroxime Axetil (Cefuroxime) 500 Mg Tablet, 500 MG PO BID, #20 TAB Prov:GABY NOGUERA MD 07/19/23 Past Medical History Past Medical History: High Cholesterol, Hypertension Additional Past Medical Hx: NON COMPLIANT Surgical History: Other Surgical History Other: "WHATEVER YOU GUYS HAVE". Social History: Smokers History: Not Applicable Review of System Dictation Constitutional: Negative for fever,chills, and weight loss Eyes: Negative for injury, pain,redness, and discharge ENT: Negative for injury,pain or swelling Cardiovascular: Negative for chest pain, palpitations, and edema Respiratory: Per HPI Abdomen/GI: Per HPI Back: Negative for injury and pain : Negative for injury, bleeding and discharge MS/Extremity: Negative for injury and deformity Skin: Negative for rash, and discoloration Neuro: Per HPI Psych: Negative for suicide ideation, homicidal ideation, and hallucinations Initial Vital Sign VS Vital Signs Date Time Temp Pulse Resp B/P (MAP) Pulse Ox O2 Delivery O2 Flow Rate FiO2 06/23/25 14:51 98.4 70 18 159/61 97 Room Air 0 Physical Exam Dictation General: awake, alert, NAD Head/Face: Normocephalic, atraumatic Eyes: PERRL, EOMI, vision at baseline ENT: oral cavity clear, TMs clear, no signs of infection Neck: Trachea midline, supple, no nuchal rigidity Cardiovascular: RRR, normal S1/S2, No MRGs, no JVD Respiratory: CTAB, no respiratory distress, No rales or wheezes Abdomen: Soft, non-tender, non-distended, normal bowel sounds, no guarding or rebound. Skin: Warm, dry, normal turgor, no rash MS/Extremity: Pulses equal, no cyanosis, neurovascular intact, FROM Neuro: COAx4, GCS 15, strength 5/5, CN 2-12 intact, normal cerebellar exam, normal gait, Psych: Normal behavior, mood, and affect normal Results (Laboratory/Radiology) Laboratory/Radiology Laboratory Tests Test 06/23/25 16:00 White Blood Count 11.1 K/uL (4.8-10.8) H Red Blood Count 4.94 MIL/uL (4.00-5.50) Hemoglobin 15.3 g/dL (12.0-16.0) Hematocrit 46.9 % (36-48) Mean Corpuscular Volume 94.9 fL (79-99) Mean Corpuscular Hemoglobin 31.0 pg (27.0-33.0) Mean Corpuscular Hemoglobin Concent 32.6 g/dL (32.0-36.0) Red Cell Distribution Width 14.0 % (11.0-15.5) Platelet Count 382 K/uL (130-400) Mean Platelet Volume 9.3 fL (7.5-10.5) Immature Granulocyte % (Auto) 0.4 % (0-1) Neutrophils (%) (Auto) 62.0 % (40.0-77.0) Lymphocytes (%) (Auto) 23.4 % (21.0-51.0) Monocytes (%) (Auto) 8.7 % (3.0-13.0) Eosinophils (%) (Auto) 4.8 % (0.0-8.0) Basophils (%) (Auto) 0.7 % (0.0-5.0) Neutrophils # (Auto) 6.9 K/uL (1.8-7.7) Lymphocytes # (Auto) 2.6 K/uL (1.0-4.8) Monocytes # (Auto) 1.0 K/uL (0.1-1.0) Eosinophils # (Auto) 0.53 K/uL (0.00-0.70) Basophils # (Auto) 0.08 K/uL (0.00-0.20) Absolute Immature Granulocyte (auto 0.04 K/uL (0-1) Nucleated Red Blood Cells 0.0 % (0.0-0.19) Sodium Level 140 mmol/L (136-145) Potassium Level 3.9 mmol/L (3.5-5.1) Chloride Level 105 mmol/L (101-111) Carbon Dioxide Level 23 mmol/L (21-32) Blood Urea Nitrogen 12 mg/dL (7-18) Creatinine 1.2 mg/dL (0.5-1.0) H Glomerular Filtration Rate Calc 51 mL/min (>90) Random Glucose 104 mg/dL (70-105) Total Calcium 8.9 mg/dL (8.5-10.1) Labs Reviewed?: Yes EKG Comment: Heart rate 75 normal sinus rhythm normal intervals no STEMI ED Course ED Course Orders Procedure Category Date Status Time B-Type Natriuretic LAB 06/23/25 In Process Peptide 15:32 D-Dimer LAB 06/23/25 In Process 15:32 12 Lead Ekg Tracing- EKG 06/23/25 Complete Technical 15:32 Basic Metabolic Panel LAB 06/23/25 In Process 15:32 Cbc With Differential LAB 06/23/25 In Process 15:32 Hepatic Function Panel LAB 06/23/25 In Process 15:32 Creatine Kinase, Total LAB 06/23/25 In Process 15:32 Troponin I High LAB 06/23/25 In Process Sensitivity 15:32 Chest 1vw RAD 06/23/25 Taken 15:32 Vital Signs Date Time Temp Pulse Resp B/P (MAP) Pulse Ox O2 Delivery O2 Flow Rate FiO2 06/23/25 14:51 98.4 70 18 159/61 97 Room Air 0 DX & DISP Departure Condition: Stable Referrals: SELF,REFERRAL (PCP) HARSHA HINES MD Jun 23, 2025 16:44
--- NOTE | 2025-06-23 16:49 | HMCIMG ---
EXAM: CR Chest, 1 View. CLINICAL HISTORY: [facility] COMPARISON: April 29, 2025 FINDINGS: LUNGS: There is no mass, infiltrate, or acute pulmonary abnormality. PLEURAL SPACES: No evidence of pleural effusion or pneumothorax. MEDIASTINUM: Cardiac size and mediastinal contours within normal limits. BONES: No aggressive appearing osseous lesion seen. IMPRESSION: No acute cardiopulmonary pathology is evident. /[place]
[2025-06-23 16:53] LABS: ASPARTATE AMINOTRANSFERASE 18 U/L (10-37); CREATINE KINASE, TOTAL 70 U/L (21-232); TOTAL PROTEIN, SERUM 7.8 g/dL (6.0-8.3)
--- NOTE | 2025-06-23 19:06 | NUR ---
patient did not want to wait to get a ct scan done. patient spoke to Dr Villa. After speaking to the physician. patient picked up her belongings and left the ER.
== END 2025-06-23 19:08 | disposition left against medical advice (07) ==
LOC: EEVIPCON 14:49 → EDH 14:49
DX: R11.0 Nausea (principal); R53.1 Weakness; M79.661 Pain in right lower leg; E78.00 Pure hypercholesterolemia, unspecified; F17.200 Nicotine dependence, unspecified, uncomplicated; I10 Essential (primary) hypertension; Z79.82 Long term (current) use of aspirin; Z91.013 Allergy to seafood
CPT/HCPCS: 36415; 71045; 80048; 80076; 82550; 83880; 84484; 85025; 85378; 93005; 99285

== ENCOUNTER → 2025-06-23 | Emergency (ER) | payer SELFPAY ==
[~2025-06-23] VITALS: Ht 157.5 cm; Wt 72.6 kg
[~2025-06-23] MED LIST changes: +AEC81 PO
[2025-06-23 13:24] VITALS: BP 167/67; PULSE 68; RESP 17; TEMP 98.5
== END | disposition left against medical advice (07) ==
LOC: EDH 13:14
DX: I82.401 Acute embolism and thrombosis of unspecified deep veins of right lower extremity (principal); R11.0 Nausea; R42 Dizziness and giddiness
CPT/HCPCS: 99281

== ENCOUNTER 2025-08-16 07:25 | Emergency (ER) | payer MEDICARE, OTHER ==
[~2025-08-16] VITALS: Ht 157.5 cm; Wt 73.5 kg
[2025-08-16 07:27] VITALS: BP 138/64; PULSE 66; RESP 18; TEMP 97.6
--- NOTE | 2025-08-16 07:37 | NUR ---
PT JUST NOW PLACED IN ED BED 12
--- NOTE | 2025-08-16 07:50 | NUR ---
PT CURRENTLY REFUSING NASAL SWABS DESPITE THE ED MD SPEAKING W/HER ABOUT BETTER COMING TO A POSSIBLE DX FOR WHAT/HOW SHE IS FEELING.
--- NOTE | 2025-08-16 07:54 | ERN ---
ED Note History of Present Illness Stated Complaint: FLU LIKE SYMPTOMS Chief Complaint: Flu Symptoms Time Seen by MD: 07:33 Dictation: 65-year-old female presenting to the emergency department with cough cold congestion and body aches over the past week positive sick contacts at home does not feel well and has headaches as well. Patient denies any shortness of breath or chest pain Allergies: Coded Allergies: shellfish derived (Unverified Allergy, Unknown, 07/19/23) Home Meds Active Scripts Aspirin (ASPIRIN 81 MG ECTAB) 81 Mg Ectab, 81 MG PO DAILY, #30 TAB.EC Prov:MIRTA NEGRETE MEDICAL ADMINISTRATIVE ASSISTANT 06/19/25 Albuterol Sulfate (Proair Digihaler) 90 Mcg Aer.pw.bas, 2 PUFF IH QID, #1 UNIT Prov:GABY NOGUERA MD 07/19/23 Prednisone (Prednisone) 20 Mg Tablet, 1 TAB PO AD for 6 Days, #14 TAB 0 Refills TAKE 3 TAB BY MOUTH daily X3 DAYS, THEN TAKE 2 TAB BY MOUTH daily X2 DAYS, THEN TAKE 1 TAB BY MOUTH ONCE A DAY X1 DAY. Prov:GABY NOGUERA MD 07/19/23 Cefuroxime Axetil (Cefuroxime) 500 Mg Tablet, 500 MG PO BID, #20 TAB Prov:GABY NOGUERA MD 07/19/23 Past Medical History Past Medical History: Cancer, Heart Disease, Hypertension, Renal Disese Additional Past Medical Hx: NON COMPLIANT Surgical History: Appendectomy, Cholecystectomy Surgical History Other: RT NEPHRECTOMY Social History: Smokers History: Not Applicable Review of System Dictation Constitutional: Per HPI Eyes: Negative for injury, pain,redness, and discharge ENT: Negative for injury,pain or swelling Cardiovascular: Negative for chest pain, palpitations, and edema Respiratory: Per HPI Abdomen/GI: Negative for abdominal pain, nausea, vomiting, diarrhea, and constipation Back: Negative for injury and pain : Negative for injury, bleeding and discharge MS/Extremity: Negative for injury and deformity Skin: Negative for rash, and discoloration Neuro: Negative for headache, weakness, numbness, tingling, and seizure Psych: Negative for suicide ideation, homicidal ideation, and hallucinations Initial Vital Sign VS Vital Signs Date Time Temp Pulse Resp B/P (MAP) Pulse Ox O2 Delivery O2 Flow Rate FiO2 08/16/25 07:27 97.5 66 18 138/64 95 Room Air 0 Physical Exam Dictation General: awake, alert, NAD Head/Face: Normocephalic, atraumatic Eyes: PERRL, EOMI, vision at baseline ENT: oral cavity clear, TMs clear, no signs of infection Neck: Trachea midline, supple, no nuchal rigidity Cardiovascular: RRR, normal S1/S2, No MRGs, no JVD Respiratory: CTAB, no respiratory distress, No rales or wheezes Abdomen: Soft, non-tender, non-distended, normal bowel sounds, no guarding or rebound. Skin: Warm, dry, normal turgor, no rash MS/Extremity: Pulses equal, no cyanosis, neurovascular intact, FROM Neuro: COAx4, GCS 15, strength 5/5, CN 2-12 intact, normal cerebellar exam, normal gait, Psych: Normal behavior, mood, and affect normal Results (Laboratory/Radiology) Laboratory/Radiology Laboratory Tests Test 08/16/25 07:46 08/16/25 07:57 White Blood Count 5.1 K/uL (4.8-10.8) Red Blood Count 4.92 MIL/uL (4.00-5.50) Hemoglobin 15.3 g/dL (12.0-16.0) Hematocrit 46.7 % (36-48) Mean Corpuscular Volume 94.9 fL (79-99) Mean Corpuscular Hemoglobin 31.1 pg (27.0-33.0) Mean Corpuscular Hemoglobin Concent 32.8 g/dL (32.0-36.0) Red Cell Distribution Width 14.5 % (11.0-15.5) Platelet Count 226 K/uL (130-400) Mean Platelet Volume 9.9 fL (7.5-10.5) Immature Granulocyte % (Auto) 0.2 % (0-1) Neutrophils (%) (Auto) 59.7 % (40.0-77.0) Lymphocytes (%) (Auto) 26.1 % (21.0-51.0) Monocytes (%) (Auto) 13.0 % (3.0-13.0) Eosinophils (%) (Auto) 0.4 % (0.0-8.0) Basophils (%) (Auto) 0.6 % (0.0-5.0) Neutrophils # (Auto) 3.1 K/uL (1.8-7.7) Lymphocytes # (Auto) 1.3 K/uL (1.0-4.8) Monocytes # (Auto) 0.7 K/uL (0.1-1.0) Eosinophils # (Auto) 0.02 K/uL (0.00-0.70) Basophils # (Auto) 0.03 K/uL (0.00-0.20) Absolute Immature Granulocyte (auto 0.01 K/uL (0-1) Nucleated Red Blood Cells 0.0 % (0.0-0.19) Sodium Level 137 mmol/L (136-145) Potassium Level 3.9 mmol/L (3.5-5.1) Chloride Level 103 mmol/L (101-111) Carbon Dioxide Level 24 mmol/L (21-32) Blood Urea Nitrogen 15 mg/dL (7-18) Creatinine 1.2 mg/dL (0.5-1.0) H Glomerular Filtration Rate Calc 50 mL/min (>90) Random Glucose 135 mg/dL (70-105) H Lactic Acid Level 2.1 mmol/L (0.8-2.5) Total Calcium 8.5 mg/dL (8.5-10.1) Total Bilirubin 0.2 mg/dL (0.2-1.0) Direct Bilirubin 0.1 mg/dL (0.0-0.3) Aspartate Amino Transf (AST/SGOT) 96 U/L (10-37) H Alanine Aminotransferase (ALT/SGPT) 114 U/L (12-78) H Alkaline Phosphatase 70 U/L (50-136) Troponin I High Sensitivity 38 ng/L (4-50) Total Protein 7.2 g/dL (6.0-8.3) Albumin 3.2 g/dL (3.5-5.0) L Urine Color LIGHT-YELLOW (YELLOW) Urine Appearance CLEAR (CLEAR) Urine pH 5.5 (5.0-8.0) Urine Specific [place] 1.015 (1.001-1.031) Urine Protein 10 mg/dL (NEGATIVE) H Urine Glucose (UA) NEGATIVE mg/dL (NEGATIVE) Urine Ketones NEGATIVE mg/dL (NEGATIVE) Urine Occult Blood MODERATE (NEGATIVE) H Urine Nitrate NEGATIVE (NEGATIVE) Urine Bilirubin NEGATIVE mg/dL (NEGATIVE) Urine Urobilinogen 0.2 mg/dL (0.2-1.0) Urine Leukocyte Esterase NEGATIVE Gaby/uL Urine RBC 2-5 /HPF (0-1) H Urine WBC 6-10 /HPF (0-1) H Urine Squamous Epithelial Cells RARE /HPF (0-2) Urine Bacteria FEW /HPF (None Seen) Labs Reviewed?: Yes EKG: (+) NSR, (+) rhythm, (+) nonspecific ST T wave chg, (+) unchanged ED Course ED Course Orders Procedure Category Date Status Time Basic Metabolic Panel LAB 08/16/25 Complete 07:34 Blood Cult CORIAN 08/16/25 In Process 07:34 Cbc With Differential LAB 08/16/25 Complete 07:34 Hepatic Function Panel LAB 08/16/25 Complete 07:34 Lactic Acid LAB 08/16/25 Complete 07:34 Urinalysis Profile LAB 08/16/25 Complete 07:34 Chest 1vw RAD 08/16/25 Taken 07:34 Troponin I High LAB 08/16/25 Complete Sensitivity 07:34 12 Lead Ekg Tracing- EKG 08/16/25 Logged Technical 07:34 Influenza Type A & B, LAB 08/16/25 Logged Rapid 07:34 Covid19 (Sars Antigen LAB 08/16/25 Logged Rapid) 07:34 Rapid (Group A Strep) LAB 08/16/25 Logged 07:34 Culture Urine CORINA 08/16/25 In Process 08:49 Vital Signs Date Time Temp Pulse Resp B/P (MAP) Pulse Ox O2 Delivery O2 Flow Rate FiO2 08/16/25 07:27 97.5 66 18 138/64 95 Room Air 0 Medical Decision Making MDM MDM: Differential diagnosis: Rationale: Tests considered and ordered secondary to shared decision making incl ude: Previous outside records reviewed: Old ER visits. Risk of complication and/or morbidity or mortality of patient management: None Medications-Per medication reconciliation Need for hospitalization: Patient does not meet criteria for hospitalization. Need for emergency major/minor surgery: No There are no social concerns with this patient. Prescription drug management Prescriptions will include symptomatic care Patient's prior external medical records from other ER visits were reviewed by me as indicated. Prior testing and results from previous visits were reviewed. Prior tests were taken into account with medical decision making and resource utilization, independent historian/historians were used to obtain complete medical history. I independently interpreted the test that were performed, results were reviewed by me and considered findings on radiology if ordered. Medical management and examination interpretation discussions were had by me with other qualified healthcare professionals as indicated for the patient's care. 65-year-old female acute bronchitis, URI, initial workup stable, vitals stable given medication and prescription for outpatient treatment. Advised to return if worse. Patient refused EKG and swabs. DX & DISP Disposition: Discharge Departure Impression: Primary Impression: Acute bronchitis Condition: Stable Scripts Prednisone (Prednisone) 20 Mg Tablet 20 MG PO DAILY for 5 Days, #5 TAB Prov: HARSHA HINES MD 08/16/25 Azithromycin (Azithromycin) 250 Mg Tablet 250 MG PO AD for cough for 5 Days, #6 TAB Prov: HARSHA HINES MD 08/16/25 Referrals: TABATHA BOOTH (PCP) HARSHA HINES MD Aug 16, 2025 07:54
[2025-08-16 07:58] LABS: IMMATURE GRANULOCYTE ABSOLUTE 0.01 K/uL (0-1); NUCLEATED RED BLOOD CELLS 0.0 % (0.0-0.19); PLATELET COUNT (AUTO) 226 K/uL (130-400); RED BLOOD CELL COUNT(AUTO) 4.92 MIL/uL (4.00-5.50); RED CELL DISTRIBUTION WIDTH 14.5 % (11.0-15.5); WHITE BLOOD COUNT (AUTO) 5.1 K/uL (4.8-10.8)
--- NOTE | 2025-08-16 08:02 | NUR ---
PT REFUSED THE 12 LEAD EKG WHEN OFFERED BY KELSEY DALE
[2025-08-16 08:11] LABS: CREATININE 1.2 mg/dL (0.5-1.0); GLOMERULAR FILTR. RATE CALC 50.0 mL/min (>90); GLUCOSE,RANDOM 135.0 mg/dL (70-105); SODIUM SERUM 137.0 mmol/L (136-145); UREA NITROGEN, BLOOD 15.0 mg/dL (7-18)
[2025-08-16 08:15] LABS: ASPARTATE AMINOTRANSFERASE 96.0 U/L (10-37); TOTAL PROTEIN, SERUM 7.2 g/dL (6.0-8.3)
--- NOTE | 2025-08-16 08:37 | NUR ---
JUST PENDING XRAY AND UA RESULT. PT REFUSED SWABS/EKG EARLIER. SHE HAS BEEN ON THE PHONE COMPLAINING THAT SHE HAS BEEN HERE ALMOST AN HOUR.
[2025-08-16 08:45] LABS: APPEARANCE,URINE CLEAR (CLEAR); GLUCOSE, URINE (UA) NEGATIVE (NEGATIVE); LEUKOCYTE ESTERASE ,URINE NEGATIVE Leu/uL (NEGATIVE); NITRATE,URINE NEGATIVE (NEGATIVE); OCCULT BLOOD,URINE MODERATE (NEGATIVE)
[2025-08-16 08:47] LABS: ADD UA MICROSCOPIC YES
[2025-08-16 08:48] LABS: SQUAMOUS EPITHELIAL CELL,UR RARE /HPF (0-2)
--- NOTE | 2025-08-16 09:22 | NUR ---
PENDING DISPOSITION. ED MD MADE AWARE
[2025-08-16] MEDS ORDERED: AZIT250T9 PO (09:26)
[2025-08-16] MEDS ORDERED: PRED20TA3 PO (09:26)
--- NOTE | 2025-08-16 09:42 | NUR ---
JUST WANTED TO LEAVE. NO D/C VITALS OBTAINED.
--- NOTE | 2025-08-16 09:42 | HMCIMG ---
EXAM: CR Chest, 1 View. CLINICAL HISTORY: fever COMPARISON: CR - CHEST 1VW - 06/23/25 15:58 EDT FINDINGS: LUNGS: The lungs show no infiltrate or other acute finding. PLEURAL SPACES: No pleural effusion or pneumothorax. MEDIASTINUM: The cardiomediastinal silhouette is within normal limits. BONES: No acute osseous abnormality. IMPRESSION: 1. No acute cardiopulmonary findings. /[place]
== END 2025-08-16 09:42 | disposition home or self-care (01) ==
LOC: EDH 07:25
DX: J20.9 Acute bronchitis, unspecified (principal); I11.9 Hypertensive heart disease without heart failure; F17.200 Nicotine dependence, unspecified, uncomplicated; Z79.82 Long term (current) use of aspirin; Z79.899 Other long term (current) drug therapy; Z90.49 Acquired absence of other specified parts of digestive tract; Z90.5 Acquired absence of kidney; Z91.013 Allergy to seafood
CPT/HCPCS: 36415; 71045; 80048; 80076; 81001; 83605; 84484; 85025; 87040; 87086; 87186; 99283